=== PATIENT | female | born 1955 | race Caucasian/White ===

== ENCOUNTER → 2018-04-19 | Emergency (ER) | payer OTHER ==
[~2018-04-19] VITALS: Ht 162.6 cm; Wt 63.5 kg
[~2018-04-19] MED LIST: LOTREL 10-20 M1 EACH
== END | disposition home or self-care (01) ==
LOC: ER 15:38
DX: K59.09 Other constipation (principal); R10.2 Pelvic and perineal pain; R10.32 Left lower quadrant pain